=== PATIENT | female | born 1955 | race Caucasian/White ===

== ENCOUNTER 2018-05-25 04:29 | Emergency (ER) | payer OTHER ==
--- NOTE | 2018-05-25 04:45 | ED Physician Documentation ---
General Adult - HISTORIAN Historian: patient - HPI Stated Complaint: Social life drama causing depressive mood/ NEVAREZ on arrival Chief Complaint: General Adult Onset: other (anxiety ) Timing: still present Severity: mild Further Comments: yes (She states that she was fired from her job after 36 years and she [place] [facility] [place] and she was discharged with no diagnosis. She states on the way back home she started to have a terrible headache and so they stopped. She does report she wears a blood pressure med patch. She has been crying "for hours" and she denies any suicidal ideations. she states she was worried with headache her b/p was high. Denies any chest pain. No weakness. She does take anxiety med and had xanax in her purse but did not take the med or any other.) Last known Well Code/Unknown Code: Unknown - ROS CONST: no problems NEURO/PSYCH: headache - PAST HX Past History: hypertension Surgeries/Procedures: other (gastric bypass ) Immunizations: UTD Allergies/Adverse Reactions: Allergies Allergy/AdvReac Type Severity Reaction Status Date / Time acetaminophen [From Vicodin] Allergy Verified 05/25/18 04:45 codeine Allergy Verified 05/25/18 04:45 hydrocodone [From Vicodin] Allergy Verified 05/25/18 04:45 Penicillins Allergy Verified 05/25/18 04:45 Sulfa (Sulfonamide Allergy Verified 05/25/18 04:45 Antibiotics) sulfamethoxazole Allergy Verified 05/25/18 04:45 [From Bactrim] trimethoprim [From Bactrim] Allergy Verified 05/25/18 04:45 Home Medications: Ambulatory Orders Medication Instructions Recorded Clonidine 0.1 mg TOP WEEK 05/25/18 - SOCIAL HX Smoking History: non-smoker Alcohol Use: none Drug Use: none - FAMILY HX Family History: No - VITAL SIGNS Vital Signs: Vital Signs Temp Pulse Resp BP Pulse Ox 98 F 70 16 164/77 100 05/25/18 04:34 05/25/18 04:34 05/25/18 04:34 05/25/18 04:34 05/25/18 04:34 - REVIEWED ASSESSMENTS Nursing Assessment Reviewed: Yes Vitals Reviewed: Yes General Adult Physical Exam - PHYSICAL EXAM GENERAL APPEARANCE: no distress EENT: eye inspection normal, no signs of dehydration NECK: normal inspection RESPIRATORY: no resp distress, chest non-tender, breath sounds normal CVS: reg rate & rhythm, heart sounds normal ABDOMEN: soft, normal bowel sounds BACK: normal inspection SKIN: warm/dry, normal color EXTREMITIES: non-tender, no edema NEURO: oriented X3, depressed mood/affect (tearful when discussion job loss ) Discharge Clincal Impression: Anxiety Referrals: Primary Doctor,No [Primary Care Provider] - 2 Days Comments: 1. Continue home meds 2. Tylenol or Ibuprofen as directed as needed for pain 3. Increase fluids 4 .Call PCP this am for appt 5. Return to ER for any concerns Condition: Stable Disposition: 01 HOME, SELF-CARE Decision to Admit: NO Date of Decison to Admit: 05/25/18 Decision Time: 05:30
[2018-05-25] MEDS ORDERED: ALPRAZOLAM 0.5 MG TABLET PO ONE (04:47)
[2018-05-25] MEDS ORDERED: ONDANSETRON HCL 4 MG TAB.RAPDIS PO ONE (04:49)
[2018-05-25] MEDS ORDERED: ACETAMINOPHEN 500 MG TABLET ONE (05:30)
[2018-05-25] MEDS ORDERED: ACETAMINOPHEN 500 MG TABLET PO ONE (05:53)
[2018-05-25 06:01] VITALS: BP 170/81
== END 2018-05-25 05:45 | disposition home or self-care (01) ==
LOC: ED 04:29
DX: F41.9 Anxiety disorder, unspecified (principal)
CPT/HCPCS: 99281; 99283; A9270